=== PATIENT | male | born 1970 | race African-American/Black ===

== ENCOUNTER 2020-08-10 14:30 | Emergency (ER) | payer MEDICAID ==
[~2020-08-10] VITALS: Ht 175.3 cm; Wt 72.6 kg
[2020-08-10 14:50] VITALS: BP 144/81
--- NOTE | 2020-08-10 14:53 | NUR ---
SEEN AND EXAMINED BY .
--- NOTE | 2020-08-10 15:45 | NUR ---
Patient discharged to home in stable condition. Written and verbal after care instructions given. Patient verbalizes understanding of instruction.
== END 2020-08-10 15:45 | disposition home or self-care (01) ==
LOC: ER 14:30
DX: S90.32XA Contusion of left foot, initial encounter (principal); Z88.0 Allergy status to penicillin; W22.8XXA Striking against or struck by other objects, initial encounter; Y93.B9 Activity, other involving muscle strengthening exercises; Y92.89 Other specified places as the place of occurrence of the external cause; Y99.8 Other external cause status
CPT/HCPCS: 73630-TC